=== PATIENT | female | born 1990 | race Two or more races ===

== ENCOUNTER 2018-01-21 11:13 | Emergency (ER) | payer SELFPAY ==
[~2018-01-21] VITALS: Ht 162.6 cm; Wt 127.0 kg
[2018-01-21 11:19] VITALS: BP 136/83
[2018-01-21] MEDS: HYDROcodone/APAP 5/325MG 1 TAB TABLET PO ONE (11:53)
[2018-01-21] MEDS ORDERED: HYDR-2758 PO (12:14)
[2018-01-21] MEDS ORDERED: PENI500T PO (12:14)
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
== END 2018-01-21 12:22 | disposition home or self-care (01) ==
LOC: ER 11:13
DX: K02.9 Dental caries, unspecified (principal); S02.5XXA Fracture of tooth (traumatic), initial encounter for closed fracture; Z93.3 Colostomy status; X58.XXXA Exposure to other specified factors, initial encounter; Y93.89 Activity, other specified; Y92.89 Other specified places as the place of occurrence of the external cause; Y99.8 Other external cause status
CPT/HCPCS: 99283

== ENCOUNTER 2019-03-20 06:09 | Emergency (ER) | payer SELFPAY ==
[~2019-03-20] VITALS: Ht 165.1 cm; Wt 113.4 kg
[~2019-03-20 06:09] MED LIST: HYDR-2761 PO; PENI500T PO
[2019-03-20 06:31] VITALS: BP 128/78
[2019-03-20] MEDS ORDERED: PRED20TA PO (06:40)
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
== END 2019-03-20 06:48 | disposition home or self-care (01) ==
LOC: ER 06:09
DX: R21 Rash and other nonspecific skin eruption (principal); Z98.51 Tubal ligation status
CPT/HCPCS: 81025; 99283

== ENCOUNTER 2019-04-02 08:29 | Emergency (ER) | payer SELFPAY ==
[~2019-04-02] VITALS: Ht 160 cm; Wt 113.4 kg
[~2019-04-02 08:29] MED LIST changes: +PRED20TA PO
[2019-04-02] MEDS ORDERED: PRED20TA PO (09:11)
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
[2019-04-02 09:27] VITALS: BP 142/87
[2019-04-02] MEDS ORDERED: methylPREDNISolone SOD SUCC PF 125 MG/2 ML VIAL. IM ONE (09:30)
== END 2019-04-02 09:27 | disposition home or self-care (01) ==
LOC: ER 08:29
DX: L50.9 Urticaria, unspecified (principal)
CPT/HCPCS: 96372; 99283; J2930

== ENCOUNTER 2019-04-14 21:26 | Emergency (ER) | payer SELFPAY ==
[~2019-04-14] VITALS: Ht 157.5 cm; Wt 113.4 kg
[2019-04-15 00:14] VITALS: BP 134/63
[2019-04-15] MEDS ORDERED: diphenhydrAMINE 50 MG/ML VIAL IVP ONE (01:00)
[2019-04-15] MEDS ORDERED: methylPREDNISolone SOD SUCC PF 125 MG/2 ML VIAL. IV ONE (01:00)
[2019-04-15] MEDS ORDERED: FAMOTIDINE 20 MG/2 ML VIAL IVP ONE (01:00)
[2019-04-15] MEDS ORDERED: PRED50TA PO (01:10)
[2019-04-15] MEDS ORDERED: FAMO-63 PO (01:10)
[2019-04-15] MEDS ORDERED: DIPH25CA58 PO (01:10)
[2019-04-15] MEDS ORDERED: EPIPEN 2-P0.3 MG/0.3 IM (01:11)
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
== END 2019-04-15 01:39 | disposition home or self-care (01) ==
LOC: ER 21:26
DX: T78.40XA Allergy, unspecified, initial encounter (principal); R42 Dizziness and giddiness; R07.89 Other chest pain
CPT/HCPCS: 96374; 96375; 99284; J1200; J2930; J3490

== ENCOUNTER 2020-02-06 08:33 | Emergency (ER) | payer MEDICAID ==
[~2020-02-06] VITALS: Ht 165.1 cm; Wt 118.0 kg
[~2020-02-06 08:33] MED LIST changes: +DIPH25CA58 PO; +EPIPEN 2-P0.3 MG/0.3 IM; +FAMO-63 PO; +PRED50TA PO
[2020-02-06] MEDS ORDERED: predniSONE 10 MG TABLET PO ONE (09:00)
[2020-02-06] MEDS ORDERED: IPRATRPIUM/ALBUTEROL 0.5/2.5MG 3 ML NEBU. NEB ONE ×2 (09:00→10:00)
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
[2020-02-06] MEDS ORDERED: ALBU2.5V8 IH (09:55)
[2020-02-06] MEDS ORDERED: PRED50TA PO (09:55)
== END 2020-02-06 10:55 | disposition home or self-care (01) ==
LOC: ER 08:33
DX: J45.901 Unspecified asthma with (acute) exacerbation (principal); R05 Cough; R07.89 Other chest pain; Z98.51 Tubal ligation status; Z98.890 Other specified postprocedural states; Z87.891 Personal history of nicotine dependence
CPT/HCPCS: 81025; 94640; 99284; J7512

== ENCOUNTER 2020-05-26 14:57 | Emergency (ER) | payer MEDICAID ==
[~2020-05-26] VITALS: Ht 162.6 cm; Wt 122.0 kg
[~2020-05-26 14:57] MED LIST changes: +ALBU2.5V8 IH
[2020-05-26 15:30] VITALS: BP 148/87
[2020-05-26] MEDS ORDERED: CETIRIZINE HCL 10 MG TABLET. PO STA (15:31)
[2020-05-26] MEDS ORDERED: PRED50TA PO (15:38)
[2020-05-26] MEDS ORDERED: CETI10TA16 PO (15:38)
[2020-05-26] MEDS ORDERED: FAMO20TA5 PO (15:38)
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
[2020-05-26] MEDS ORDERED: predniSONE 10 MG TABLET PO ONE (15:45)
[2020-05-26] MEDS ORDERED: FAMOTIDINE 20 MG TABLET. PO ONE (15:45)
== END 2020-05-26 16:18 | disposition home or self-care (01) ==
LOC: ER 14:57
DX: J45.909 Unspecified asthma, uncomplicated (principal); F17.200 Nicotine dependence, unspecified, uncomplicated
CPT/HCPCS: 99284; J7512

== ENCOUNTER 2021-05-16 09:02 | Emergency (ER) | payer MEDICAID ==
[~2021-05-16] VITALS: Ht 160 cm; Wt 109.9 kg
[~2021-05-16 09:02] MED LIST changes: +CETI10TA16 PO; +FAMO20TA5 PO
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
--- NOTE | 2021-05-16 10:23 | RAD ---
XR CHEST 1V 05/16/2021 9:56 AM INDICATION: Cough COMPARISON: None available TECHNIQUE: Portable frontal view of the chest is provided. FINDINGS: The cardiomediastinal silhouette is within normal limits. Lungs are clear. There are no significant pleural effusions. There is no pulmonary vascular congestion. No pneumothora x. No suspicious osseous abnormality. IMPRESSION: There is no acute cardiopulmonary process. Electronically signed by: Katelynn Matt MD (05/16/2021 10:20 AM) [id number]
[2021-05-16] MEDS ORDERED: IPRATRPIUM/ALBUTEROL 0.5/2.5MG 3 ML NEBU. NEB ONE (11:00)
[2021-05-16] MEDS ORDERED: ALBU2.5V8 IH (12:02)
[2021-05-16] MEDS ORDERED: PRED20TA PO (12:02)
[2021-05-16 12:23] VITALS: BP 128/68
--- NOTE | 2021-05-17 16:06 | NUR ---
IP: Informed pt of positive covid test and the need to quarantine for 10 days. Pt verbalized understanding.
== END 2021-05-16 12:22 | disposition home or self-care (01) ==
LOC: ER 09:02
DX: J45.909 Unspecified asthma, uncomplicated (principal); Z20.822 Contact with and (suspected) exposure to COVID-19; E03.9 Hypothyroidism, unspecified
CPT/HCPCS: 71045; 87426; 94640; 99284; U0003; U0005; 99285-25